=== PATIENT | female | born 1990 | race Caucasian/White ===

== ENCOUNTER 2020-10-29 08:49 | Emergency (ER) | payer OTHER ==
[~2020-10-29] VITALS: Ht 175.3 cm; Wt 76.9 kg
--- NOTE | 2020-10-29 09:35 | PHYS DOC ---
Past History Additional Past Medical Histor: seasonal allergies, food allergies Past Surgical History: Other Additional Past Surgical Histo: D&C, hip procedure Adult General Chief Complaint Chief Complaint: VAGINAL BLEEDING [facility] HPI Patient is a 29-year-old female complaining of vaginal bleeding in . She is suffering a spontaneous first trimester during her first , remaining 2 are alive and well. She reports she is approximately 17 weeks and sees [facility] in [place]. Has no medical issues, takes Claritin and otherwise is healthy. Reports she has had no issues but admits having sexual intercourse with partner this morning and afterwards, she noticed she had bright red vaginal bleeding that was painless in nature. She reports the quantity of blood concerned her as it soaked michelle roximately 1 x 1 foot and 1 inch deep into her comforter. She estimates total blood loss approximately 2 ounces. Ongoing bleeding was observed for following hour which concerned her prompting her to come in for evaluation. She is antibody negative, has never required RhoGam in the past Review of Systems Review of Systems Fourteen body systems of review of systems have been reviewed. See HPI for pertinent positives and negative responses, other wilkes all other systems are n egative, non-pertinent or non-contributory Allergies Allergies Allergies Coded Allergies Type Severity Reaction Last Updated Verified corn Allergy Unknown Anaphylaxis 10/29/20 Yes hydrocodone Allergy Unknown Rash 10/29/20 Yes latex Allergy Unknown 10/29/20 Yes Physical Exam Physical Exam Constitutional: Well developed, well nourished, no acute distress, non-toxic appearance. HENT: Normocephalic, atraumatic, bilateral external ears normal, oropharynx moist, no oral exudates, nose normal. Eyes: PERRLA, EOMI, conjunctiva normal, no discharge. Neck: Normal range of motion, no tenderness, supple, no stridor. Cardiovascular: Heart rate regular, sinus rhythm, no murmurs rubs or gallops Lungs & Thorax: Bilateral breath sounds clear to auscultation Abdomen: Bowel sounds normal, soft and gravid, no tenderness, no masses, no pulsatile masses. Nonsurgical abdomen, no peritoneal signs : External genitalia unremarkable. Vaginal galvan atraumatic without any lacerations. Cervix closed and grossly well-appearing. There is some scant blood in posterior fornix without any obvious clots or ongoing signs of active bleeding Skin: Warm, dry, no erythema, no rash. Back: No tenderness, no CVA tenderness. Extremities: No tenderness, no cyanosis, no clubbing, ROM intact, no edema. Neurologic: Alert and oriented X 3, grossly normal motor & sensory function, no focal deficits noted. Psychologic: Affect normal, judgement normal, mood normal. Current Patient Data Vital Signs Vital Signs Date Time Temp Pulse Resp B/P (MAP) Pulse Ox O2 Delivery O2 Flow Rate FiO2 10/29/20 09:10 97.8 80 16 126/58 97 EKG EKG [] Radiology/Procedures Radiology/Procedures Examination: Obstetric ultrasound limited HISTORY: History of 17 weeks , vaginal bleeding after sexual intercourse COMPARISON: None available FINDINGS: Single living intrauterine identified with heart rate of 144 bpm. The cervical length measures 5 cm. The placenta is an anterior wall. The biparietal diameter measures 3.9 cm corresponding to 18 weeks and 0 days. Head circumference measures 14.7 cm corresponding to 17 weeks and 6 days. Abdominal circumference measures 12.5 cm corresponding to 18 weeks and 1 day. Femur length measures 2.6 cm corresponding to 18 weeks and 0 days. Head circumference to abdominal circumference ratio 1.1. Estimated weight 221 g. Estimated gestational age 18 weeks and 0 days with date of delivery by ultrasound 04/01/2021. IMPRESSION: 1. Single living intrauterine as described above. Electronically signed by: Obed Poe MD (10/29/2020 11:25 AM) [id number] Heart Score C/O Chest Pain: No Risk Factors: Risk Factors: DM, Current or recent (<one month) smoker, HTN, HLP, family history of CAD, obesity. Risk Scores: Risk Factors: DM, Current or recent (<one month) smoker, HTN, HLP, family history of CAD, obesity. Course & Med Decision Making Course & Med Decision Making ABCs unremarkable. I disclosed entirety of ER findings and discussed most likely diagnosis of vaginal bleeding in . Other diagnoses were discussed with patient such as placental abnormalities versus other obstetric emergencies but all deemed less likely causes of patient's presentation. Vitals, physical examination and ultrasound nonconcerning for any emergent or surgical issues. Blood loss stopped, no signs of ongoing bleeding during ER visit. Joint decision to defer any blood work as patient remains asymptomatic. She is not a candidate for RhoGam. Plan of care discussed at length with need for close outpatient follow-up to review today's ER visit stressed. Strict return precautions were also discussed at length with good understanding by patient. Patient voiced understanding and agreement with the plan. Patient knows to come back for repeat evaluation if concerning signs or symptoms present prior to out patient follow-up. Hemodynamically stable, ambulatory and well-appearing at time of disposition. Dragon Disclaimer Dragon Disclaimer This electronic medical record was generated, in whole or in part, using a voice recognition dictation system. Departure Departure: Impression: Primary Impression: Vaginal bleeding in patient at less than 20 weeks gestation Disposition: HOME / SELF CARE / HOMELESS Condition: STABLE Referrals: ROBBIN AGARWAL (PCP) Additional Instructions: You were seen for vaginal bleeding. Your vitals, physical examination, heart tones and vaginal ultrasound were nonconcerning for any emergent or surgical issues. You need to return to the ED immediately if you develop worsening pain, heavy vaginal bleeding, chest pain, shortness of breath, excessive fatigue, lightheadedness, or any other new or concerning symptoms. NADINE STERN DO Oct 29, 2020 09:35
[2020-10-29 10:49] LABS: BACTERIA,URINE 0 /HPF (0-FEW); BILIRUBIN,URINE NEG (NEG); CLARITY,URINE CLEAR; COLOR,URINE YELLOW; GLUCOSE,URINE NEG (NEG); NITRITE,URINE NEG (NEG); SQUAMOUS EPITHELIAL CELL,UR OCC /LPF; UROBILINOGEN,URINE 0.2 mg/dL (0.2 mg/dL); WBC,URINE 0 /HPF (0-4)
--- NOTE | 2020-10-29 11:28 | RAD ---
Examination: Obstetric ultrasound limited HISTORY: History of 17 weeks , vaginal bleeding after sexual intercourse COMPARISON: None available FINDINGS: Single living intrauterine identified with heart rate of 144 bpm. The cervical length measures 5 cm. The placenta is an anterior wall. The biparietal diameter measures 3.9 cm corresponding to 18 weeks and 0 days. Head circumference measures 14.7 cm corresponding to 17 weeks and 6 days. Abdominal circumference measures 12.5 cm corresponding to 18 weeks and 1 day. Femur length measures 2.6 cm corresponding to 18 weeks and 0 days. Head circumference to abdominal circumference ratio 1.1. Estimated weight 221 g. Estimated gestational age 18 weeks and 0 days with date of delivery by ultrasound 04/01/2021. IMPRESSION: 1. Single living intrauterine as described above. Electronically signed by: Obed Poe MD (10/29/2020 11:25 AM) [id number]
[2020-10-29 12:40] VITALS: BP 114/68
== END 2020-10-29 12:45 | disposition home or self-care (01) ==
LOC: ER 08:49
DX: O20.8 Other hemorrhage in early pregnancy (principal); Z3A.18 18 weeks gestation of pregnancy; Z91.040 Latex allergy status
CPT/HCPCS: 76815; 81001; 99284-25